=== PATIENT | male | born 1975 | race Caucasian/White ===

== ENCOUNTER 2016-06-02 03:00 | Emergency (ER) | payer OTHER, MEDICAID ==
[2016-06-02 03:44] LABS: BASOPHIL % 0.8 % (0-2); PLATELET COUNT 237 x10^3mcL (130-400)
[2016-06-02 03:45] LABS: RED CELL DISTRIBUTION WIDTH 15.3 % (11.5-14.5)
[2016-06-02 04:00] LABS: ALBUMIN 4.8 g/dL (3.4-5.0); ALKALINE PHOSPHATASE 86 U/L (46-116); ALT/SGPT 54 U/L (16-63); AST/SGOT 35 U/L (15-37); BILIRUBIN TOTAL 1.24 mg/dL (0.20-1.00); CALCIUM 9.9 mg/dL (8.5-10.1); CARBON DIOXIDE 24.2 mmol/L (21-32); CHLORIDE SERUM 101 mmol/L (98-107); CREATININE SERUM 1.1 mg/dL (0.7-1.3); GFR1 > 60 mL/min; GLUCOSE SERUM 98 mg/dL (74-106); POTASSIUM SERUM 3.9 mmol/L (3.5-5.1); SODIUM SERUM 142 mmol/L (136-145)
[2016-06-02 04:01] LABS: TOTAL PROTEIN, SERUM 8.6 g/dL (6.4-8.2)
[2016-06-02 10:12] LABS: AMPHETAMINE QUAL UR NONE DETECTED (NEG <=1000)
[2016-06-03 06:28] LABS: ALBUMIN 3.8 g/dL (3.4-5.0); ALKALINE PHOSPHATASE 72 U/L (46-116); ALT/SGPT 46 U/L (16-63); AMYLASE 38 U/L (25-115); AST/SGOT 32 U/L (15-37); BILIRUBIN TOTAL 0.9 mg/dL (0.20-1.00); CALCIUM 8.9 mg/dL (8.5-10.1); CHLORIDE SERUM 104 mmol/L (98-107); CHOLESTEROL 136 mg/dL (<200); CREATININE SERUM 0.9 mg/dL (0.7-1.3); GFR1 > 60 mL/min; GLUCOSE SERUM 103 mg/dL (74-106); HDL CHOLESTEROL 46 mg/dL (40-60); LACTIC DEHYDROGENASE (LDH) 162 U/L (100-190); LIPASE 164 IU/L (73-393); PHOSPHOROUS 4.5 mg/dL (2.5-4.9); POTASSIUM SERUM 3.5 mmol/L (3.5-5.1); SODIUM SERUM 142 mmol/L (136-145); TOTAL PROTEIN, SERUM 7.4 g/dL (6.4-8.2); TRIGLYCERIDES 83 mg/dL (<150)
[2016-06-03 06:40] LABS: BASOPHIL % 0.3 % (0-2); PLATELET COUNT 216 x10^3mcL (130-400)
[2016-06-03 06:58] LABS: RED CELL DISTRIBUTION WIDTH 15.8 % (11.5-14.5)
[2016-06-03 07:41] LABS: FREE T4 1.4 ng/dL (0.76-1.46)
[2016-06-03 08:27] LABS: T3 TOTAL 1.46 ng/mL
[2016-06-03 08:52] LABS: microscopic required? NO
[2016-06-03 08:58] LABS: UA SPECIFIC GRAVITY <=1.005 (1.005-1.035); urine erythrocyte NEGATIVE (NEGATIVE)
[2016-06-03] MEDS ORDERED: SEROQUEL50 M1 PO (19:52)
[2016-06-03 21:50] VITALS: BP 146/97
== END 2016-06-03 21:50 ==
LOC: ED 03:00 → EDBD 03:00 → ED 06-03 21:50
PROVIDERS: Emergency Medicine; Family Medicine
DX: F20.9 Schizophrenia, unspecified (principal)
CPT/HCPCS: 80307; 83880; 84439; G0480; J1200; J1630; J2060; J3486